=== PATIENT | female | born 2000 | race Hispanic/Latino ===

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

== ENCOUNTER 2022-03-28 20:08 | Emergency (ER) | payer OTHER, SELFPAY ==
--- OUTSIDE RECORDS SUMMARY | 2022-03-28 20:11 | XMS REPORT | Continuity of Care Document ---
:2000 Author Organization [facility] t Address [address] [place] [address] Care Team Providers Name Role Phone Radiology Attending Clinician Unavailable RADIOLOGY Attending Clinician Unavailable Doctor Unassigned, [place] Attending Clinician Unavailable Payers Payer Name Policy Type Policy Number Effective Date Expiration Date S ource Problems Condition Condition Condition Status Onset Resolution Last Treating Co mments Source Name Details Category Date Date Treatment Clinician Date Encounter Encounter Problem Active Com mon for other for other Spir it general general - [facility] counseling counseling [facility] or advice or advice Edis car on on Medical contracept contracept Ce nter ion ion Nexplanon Nexplanon Problem Active Com mon insertion insertion Spir it - [facility] Encounter Encounter Problem Active Com mon for for Spirit surveillan surveillan - [facility] ce of ce of St implantabl implantabl Yudelka kes e e Medical subdermal subdermal Cent er contracept contracept sameer sameer Follow up Follow up Problem Active Com mon [facility] Allergies, Adverse Reactions, Alerts Allergy Allergy Status Severity Reaction(s) Onset Inactive Treating Comm ents Source Name Type Date Date Clinician NO KNOWN Drug Active Univers ALLERGIE Class ity of S [facility] Social History Social Habit Start Date Stop Date Quantity Comments Source Sex Assigned At Uni versity [facility] Exposure to SARS-CoV-2 Not sure Un iversity [facility] (event) [facility] Smoking Status Start Date Stop Date Source Unknown if ever smoked Universit y [facility] Medications Ordered Filled Start Stop Current Ordering Indication Dosage Frequency Signature Comments Components Source Medication Medication Date Date Medication? Clinician (SIG) Name Name Charmaine Montano 2018-06- No Yomi 1 tablet [facility] 0-02 09 Rekhi Spirit 00:00: 00:00 - [facility]I 00 :00 [facility] Azithromyci Azithromyci 2018-06- No Yomi 1 tablet Common n n 0-02 03-16 Releoncioi Spirit 00:00: 00:00 - CHI 00 :00 [facility] Procedures Procedure Date / Time Performed Performing Clinician [facility] e ASSIGNMENT OF BENEFITS 2020-06-10 20:52:42 Doctor Unassigned, No [facility] Encounters Start End Encounter Admission Attending Care Care Encounter Source Date/Time Date/Time Type Type Clinicians Facility Department ID 2020-06-10 2020-06-10 [facility] Radiology [facility] [id number] Univers 14:53:32 23:59:00 Encounter [place] [id number] ity of [place] [id number] [place] [id number] [facility] [address] [place] 2020-06-10 2020-06-10 [facility] Radiology [facility] [id number] Univers 14:35:00 14:52:00 Encounter [place] [id number] ity of [place] [id number] [facility] [id number] [address] 2020-06-10 2020-06-10 Outpatient R RADIOLOGY [facility] [id number] Univers 00:00:00 00:00:00 ity of [facility] 2020-06-10 2020-06-10 Orders Doctor GARCIAS [id number] Univers 00:00:00 00:00:00 Only Unassigned, SABAS [id number] [facility] [id number] Leonardo [id number] [place] [address] [address] 2019-03-15 2019-03-15 [facility] [id number] Common 12:48:00 12:48:00 [facility] 2019-02-16 2019-02-16 [facility] [id number] Common 09:15:00 09:15:00 [facility] 2018-07-11 2018-07-11 [facility] [id number] Common 15:45:00 15:45:00 [facility] 2017-12-20 2017-12-20 Outpatient Angela Melendez [id number] Common 14:30:00 14:30:00 t [facility] Care Clinic - [facility] 2017-11-29 2017-11-29 Outpatient Angela Melendez [id number] Common 14:00:00 14:00:00 t [facility] Care Care [facility] - [facility] 2017-09-30 2017-09-30 Outpatient Angela Melendez [id number] Common 13:45:00 13:45:00 t Women's Women's Spir it Care Care Clinic - I [facility] Results This patient has no known results.
[2022-03-28 21:52] LABS: Urine Blood Negative (Negative); Urine Glucose Negative (Negative); Urine Protein Negative (Negative); Urine Specific Gravity >=1.030 (1.005-1.030)
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
[2022-03-28 23:44] VITALS: BP 136/81; TEMP 98.1; O2SAT 100
== END 2022-03-28 23:02 | disposition home or self-care (01) ==
LOC: ER 20:08
DX: M54.50 Low back pain, unspecified (principal); R07.1 Chest pain on breathing; R10.817 Generalized abdominal tenderness; M54.2 Cervicalgia; R51.9 Headache, unspecified; V43.62XA Car passenger injured in collision with other type car in traffic accident, initial encounter; Y93.89 Activity, other specified; Y92.410 Unspecified street and highway as the place of occurrence of the external cause
CPT/HCPCS: 70450; 71250; 72125; 81003; 99283

== ENCOUNTER 2025-03-29 04:35 | Emergency (ER) | payer SELFPAY ==
--- OUTSIDE RECORDS SUMMARY | 2025-03-29 04:39 | XMS REPORT | Continuity of Care Document ---
Author Name Unknown Address [address] [facility] [place] [address] [facility] [place] Address [address] [facility] [place] [address] Care Team Providers [facility] Manager Name Role Phone Mariaelena Nathan Attending Clinician Unavail able Radiology Attending Clinician Unavailable RADIOLOGY Attending Clinician Unavailable Doctor Unassigned, [place] Attending Clinician U navailable Payers Payer Name Policy Type Policy Number Effective Date Expirati on Date Source Problems Condition Name Condition Details Condition Category Status Onset Date Resolution Date Last Treatment Date Treating Clinician Comments Source [id number] Current moderate episode of major depressive disorder without prior episode Problem [facility] [id number] AL[place] (generaliz ed anxiety disorder) Problem [facility] [id number] Encounter for surveillan ce of implantabl e subdermal contracept sameer Problem [facility] [id number] Other tobacco product nicotine dependence , uncomplica mer Problem [facility] Allergies, Adverse Reactions, Alerts Allergy Name Allergy Type Status Severity Reaction(s) Onset Date Inactive Date Treating Clinician Comments Source NO KNOWN ALLERGIE S Drug Class Active [facility] Social History Social Habit Start Date Stop Date Quantity Comments Source History of Tobacco Use [facility] Sex Assigned At [facility] Exposure to SARS-CoV-2 (event) Not sure [facility] Smoking Status Start Date Stop Date Source Unknown if ever smoked [facility] Never Smoker [facility] Medications Ordered Medication Name Filled Medication Name Start Date Stop Date Current Medication? Ordering Clinician Indication Dosage Frequency Signature (SIG) Comments Components Source diphenhydrA MINE HCl 12.5 MG/5ML diphenhydrA MINE HCl 12.5 MG/5ML 2022-06 00:00: 00 No diphenhydr AMINE HCl 12.5 MG/5ML diphenhydrA MINE HCl 12.5 MG/5ML diphenhydrA MINE HCl 12.5 MG/5ML 2022-06 00:00: 00 No diphenhydr AMINE HCl 12.5 MG/5ML Flagyl Flagyl 2018-06 00:00: 00 03-22 00:00 :00 No Yomi Schumacher 1 tablet [facility] Azithromyci n Azithromyci n 2018-06 00:00: 00 03-16 00:00 :00 No Yomi Schumacher 1 tablet [facility] Macrobid 100 MG Macrobid 100 MG 07-11 00:00: 00 No 1{capsu le_with _food} BID Macrobid 100 MG Macrobid 100 MG Macrobid 100 MG 07-11 00:00: 00 No 1{capsu le_with _food} BID Macrobid 100 MG Nexplanon 68 MG Nexplanon 68 MG No Nexplanon 68 MG Calamine 8-8 % Calamine 8-8 % No Calamine 8-8 % Melatonin Melatonin No Melatonin methylPREDN ISolone 4 MG methylPREDN ISolone 4 MG No QD methylPRED NISolone 4 MG Nexplanon 68 MG Nexplanon 68 MG No Nexplanon 68 MG Calamine 8-8 % Calamine 8-8 % No Calamine 8-8 % Melatonin Melatonin No Melatonin methylPREDN ISolone 4 MG methylPREDN ISolone 4 MG No QD methylPRED NISolone 4 MG Vital Signs Vital Name Observation Time Observation Value Comments S tracyce height 2023-05-19 13:40:00 60 [in_i] Commo n [facility] weight 2023-05-19 13:40:00 105.8 [lb_av] Co mmon [facility] temperature 2023-05-19 13:40:00 98.8 [degF] Com mon [facility] bmi 2023-05-19 13:40:00 20.66 kg/m2 Comm on [facility] oximetry 2023-05-19 13:40:00 97 % Commo n [facility] respiratory rate 2023-05-19 13:40:00 18 /min [facility] blood pressure systolic 2023-05-19 13:40:00 111 mm[Hg] Common [facility] blood pressure diastolic 2023-05-19 13:40:00 65 mm[Hg] [facility] Procedures Procedure Date / Time Performed Performing Clinicia n Source ASSIGNMENT OF BENEFITS 2020-06-10 20:52:42 Docto r Unassigned, [place] [facility] Encounters Start Date/Time End Date/Time Encounter Type Admission Type Attending Clinicians Care Facility Care Department Encounter ID Source 2023-05-19 09:32:00 Outpatient Mariaelena Nathan STLMLC STLMLC [id number] [facility] 2023-05-19 00:00:00 2023-05-19 00:00:00 OFFICE VISIT NEW PT LEVEL 3 STLMLC STL[facility]C [id number] [facility] 2023-05-19 00:00:00 2023-05-19 00:00:00 (TEL) STLC STLMLC [id number] [facility] 2020-06-10 14:53:32 2020-06-10 23:59:00 Hospital Encounter Radiology [facility] [id number] [facility] 2020-06-10 14:35:00 2020-06-10 14:52:00 Hospital Encounter Radiology [facility] [id number] [facility] 2020-06-10 00:00:00 2020-06-10 00:00:00 Outpatient R RADIOLOGY [facility] [id number] [facility] 2020-06-10 00:00:00 2020-06-10 00:00:00 Orders Only Doctor Unassigned, [place] [facility] [id number] [facility] 2019-03-15 12:48:00 2019-03-15 12:48:00 Outpatient [facility] [id number] [facility] 2019-02-16 09:15:00 2019-02-16 09:15:00 Outpatient [facility] [id number] [facility] 2018-07-11 15:45:00 2018-07-11 15:45:00 Outpatient [facility] [id number] [facility] 2017-12-20 14:30:00 2017-12-20 14:30:00 Outpatient [facility] [id number] [facility] 2017-11-29 14:00:00 2017-11-29 14:00:00 Outpatient [facility] [id number] [facility] 2017-09-30 13:45:00 2017-09-30 13:45:00 Outpatient [facility] [id number] [facility]
[2025-03-29] MEDS ORDERED: LORAZEPAM 1 MG TABLET ONE (05:02)
[2025-03-29 05:06] LABS: Absolute Lymphocytes (CBC) 2.3 K/uL (0.7-4.9); Hematocrit 41.1 % (36.0-45.0); Hemoglobin 14.1 g/dL (12.0-15.0); MCH 30.7 pg (27.0-35.0); MCHC 34.3 g/dL (32.0-36.0); MCV 89.7 fL (80-100); MPV 6.6 fL (7.6-11.3); Nucleated RBC Absolute Count 0.0 (0-0); Nucleated Red Blood Cells % 0.0 % (0-0); RBC Red Blood Cell Count 4.59 M/uL (3.86-4.86); White Blood Count 11.20 thou/uL (4.3-10.9)
[2025-03-29 05:15] LABS: PT Prothrombin Time 10.4 SECONDS (10-13.0); PTT, Activated Partial Thromb 29.5 SECONDS (27.2-37.4); Protime INR 0.92
[2025-03-29 05:25] LABS: ALT/SGPT 24 U/L (13-56); Albumin 3.7 g/dL (3.4-5.0); Albumin/Globulin Ratio 0.9 (1.1-1.8); Alkaline Phosphatase 66 U/L (45-117); Anion Gap 9.5 mEq/L (5.0-15.0); BUN Blood Urea Nitrogen 7 mg/dL (7-18); Globulin 4.2 g/dL (2.3-3.5); Glucose Level 98 mg/dL (74-106)
[2025-03-29 05:32] LABS: AST/SGOT 13 U/L (15-37); Bilirubin Indirect, Calculated 0.0 mg/dL (0.2-0.8); Potassium 3.5 mEq/L (3.5-5.1)
[2025-03-29 05:38] LABS: METHAMPHETAM NEGATIVE (NEGATIVE); THC Cannibis POSITIVE (NEGATIVE)
--- NOTE | 2025-03-29 05:45 | EDPHYS ---
Physician Documentation [facility] Name: Josesito Alberts Age: 24 yrs Sex: Female : 2000 Arrival Date: 03/29/2025 Time: 04:35 Bed 18 Private MD: ED Physician Brody Boyle HPI: 03/29 04:56 This 24 yrs old Female presents to ER via Ambulatory with complaints of tt7 Suicidal Ideation. 04:56 Patient reports that she came in as part of her safety plan because she has been having tt7 worsening suicidal ideations. She reports that she struggles with depression, chronic suicidal ideations, and anxiety at baseline but lately has been consuming alcohol more frequently to manage her anxiety and became alarmed due to the intrusiveness of her suicidal ideations. She states that she has never had suicidal intent before but has recently had some thoughts that concerned her. She denies definitive suicidal plan. She denies homicidal ideations, auditory or visual hallucinations. [employer] B[employer]: 05:05 LMP N/A - nexplanon, Not vc1 Historical: - Allergies: 04:40 No Known Allergies; vc1 - Home Meds: 04:40 None [Active]; vc1 - PMHx: 04:40 Depressive disorder; Anxiety; vc1 - PSHx: 04:40 None; vc1 - Immunization history:: Client reports having NOT received the Covid vaccine. Flu vaccine is not up to date. - Infectious Disease History:: Denies. - Social history:: Smoking status: Reported history of juuling and/or vaping. ROS: 04:55 Constitutional: negative for fever. Cardiovascular: negative for chest pain. tt7 Respiratory: negative for shortness of breath. Abdomen/GI: negative for abdominal pain, nausea, vomiting, diarrhea. MS/Extremity: negative for injury and deformity. Skin: negative for rash. Neuro: negative for focal weakness. 04:55 Psych: Positive for anxiety, depression, suicidal ideation, Negative for auditory hallucinations, visual hallucinations, homicidal ideation, Exam: 04:58 Constitutional: Constitutional: vital signs reviewed, well appearing Head: tt7 normocephalic Eyes: no conjunctival injection, anicteric sclerae ENMT: mucus membranes moist Neck: trachea midline, no JVD Respiratory: normal respiratory effort, no accessory muscle use, no audible wheezing Cardiovascular: Regular rate and rhythm, no lower extremity edema Abdomen: nondistended MSK: normal ROM of extremities, no gross deformities Skin: warm, dry, intact Neuro: alert and oriented with appropriate mental status, normal speech, follows commands, no focal neurologic deficits Psych: Depressed mood, flat affect Vital Signs: 04:40 BP 124 / 88; Pulse 104; Resp 18; Pulse Ox 96% ; Weight 46.72 kg; Height 5 ft. 1 in. ; vc1 05:13 Temp 98; km10 09:18 BP 115 / 84; Pulse 99; Resp 16; Temp 98.2; Pulse Ox 98% ; ts3 21:25 BP 130 / 83; Pulse 72; Resp 12 S; Temp 98.3(O); Pulse Ox 98% on R/A; sa1 04:40 Body Mass Index 19.46 (46.72 kg, 154.94 cm) vc1 MDM: 04:41 Medical Screening Exam initiated tt7 04:53 Differential diagnosis: drug withdrawal. depression, Suicidal ideation. Data reviewed: tt7 vital signs, nurses notes, lab test result(s). ED course: Standard toxicology/psych evaluation initiated, 1 mg of oral Ativan ordered to treat patient's anxiety and prevent any potential alcohol withdrawal symptoms. 05:41 ED course: I independently interpreted the patient's EKG performed on 03/29/2025 at tt7 0501. On my interpretation, EKG demonstrates normal sinus rhythm, ventricular rate 94 bpm, normal axis, normal QRS interval, normal ST segments, no STEMI. ED course: Laboratory studies are overall reassuring, elevated ethanol level of 133, patient clinically sober, also urine drug screen is positive for cocaine, benzos, cannabinoids, patient medically stable for psychiatric placement. 06:50 ED course: Patient care signed out to Dr. Horne at shift change at 0700 pending tt7 psychiatric placement. 20:52 ED course: I took over care of this patient at shift change at 1900 on 03/29, I tt7 reassessed the patient, she is resting comfortably and in no acute distress, the patient was accepted by Dr. Morataya at [facility] and will be transported there in stable condition once EMS transport is available. 03/29 04:50 Order name: Acetaminophen; Complete Time: 05:39 tt7 03/29 04:50 Order name: Basic Metabolic Panel; Complete Time: 05:39 03/29 04:50 Order name: CBC with Diff; Complete Time: 05:20 03/29 04:50 Order name: ETOH Level; Complete Time: 05:39 03/29 04:50 Order name: Hepatic Function; Complete Time: 05:39 03/29 04:50 Order name: PT-INR; Complete Time: 05:20 03/29 04:50 Order name: Ptt, Activated; Complete Time: 05:20 03/29 04:50 Order name: Salicylate; Complete Time: 05:39 03/29 04:50 Order name: Urine Drug Screen; Complete Time: 05:39 03/29 04:50 Order name: Test, Serum; Complete Time: 05:39 03/29 04:50 Order name: EKG - Nurse/Tech; Complete Time: 05:10 03/29 04:50 Order name: IV Saline Lock; Complete Time: 05:01 03/29 04:50 Order name: Labs collected and sent; Complete Time: 05:01 03/29 04:50 Order name: Suicide Precautions; Complete Time: 05:01 03/29 04:50 Order name: Suicide Screening ([place]); Complete Time: 05:01 tt7 Administered Medications: 05:18 Drug: LORazepam PO 1 mg PO once Route: PO; km10 05:56 Follow up: Response: No adverse reaction km10 Disposition: 20:52 Co-signature as Attending Physician, Brody Boyle DO. tt7 Disposition Summary: 03/29/25 05:44 Transfer Ordered Notes: Transfer Location: Psych Facility tt7 Reason: Specialty tt7 Condition: Stable tt7 Problem: an acute exacerbation tt7 Symptoms: are unchanged tt7 Accepting Physician: Dr. Morataya(03/29/25 21:29) rg5 Diagnosis - Suicidal ideations tt7 Forms: - Medication Reconciliation Form tt7 - SBAR form tt7 Signatures: Dispatcher [employer] Jaylyn Walker RN RN vc1 Lonnie Cherry RN RN rg5 Marcela Schulte RN RN km10 Brody Boyle DO DO tt7 Corrections: (The following items were deleted from the chart) 04:51 04:51 ACETAMINOPHEN+C.LAB.BRZ ordered. EDMS EDMS 04:51 04:51 BASIC METABOLIC PANEL+C.LAB.BRZ ordered. EDMS EDMS 04:51 04:51 CBC+H.LAB.BRZ ordered. EDMS EDMS 04:51 04:51 ETHANOL+C.LAB.BRZ ordered. EDMS EDMS 04:51 04:51 HEPATIC FUNCTION+C.LAB.BRZ ordered. EDMS EDMS 04:51 04:51 PROTIME (+INR)+COAG.LAB.BRZ ordered. EDMS EDMS 04:51 04:51 PTT, ACTIVATED+COAG.LAB.BRZ ordered. EDMS EDMS 04:51 04:51 SALICYLATE+C.LAB.BRZ ordered. EDMS EDMS 04:51 04:51 URINE DRUG SCREEN+UC.LAB.BRZ ordered. EDMS EDMS 04:51 04:51 TEST, SERUM+SC.LAB.BRZ ordered. EDMS EDMS 05:33 05:20 Test, Urine+UC.LAB.BRZ ordered. EDMS EDMS 20:53 05:44 Psych tt7 tt7 21:29 20:53 Dr. Morataya tt7 rg5
--- NOTE | 2025-03-29 05:45 | ER ---
Nurse's Notes [facility] Name: Josesito Alberts Age: 24 yrs Sex: Female : 2000 Arrival Date: 03/29/2025 Time: 04:35 Bed 18 Private MD: Diagnosis: Suicidal ideations Presentation: 03/29 04:40 Chief complaint: Patient states: "I came in tonight because I was afraid I was going to vc1 hurt myself, I cut myself 2 nights ago and I am afraid I am going to hurt myself again". Coronavirus screen: Client denies travel out of the [place] in the last 14 days. At this time, the client does not indicate any symptoms associated with coronavirus-19. Ebola Screen: Patient negative for fever greater than or equal to 101.5 degrees Fahrenheit, and additional compatible Ebola Virus Disease symptoms Patient denies exposure to infectious person. Patient denies travel to an Ebola-affected area in the 21 days before illness onset. No symptoms or risks identified at this time. 04:40 Method Of Arrival: Ambulatory vc1 04:40 Initial Sepsis Screen: Does the patient meet any 2 criteria? No. Patient's initial vc1 sepsis screen is negative. Does the patient have a suspected source of infection? No. Patient's initial sepsis screen is negative. Risk Assessment: Do you want to hurt yourself or someone else? Patient reports desire/thoughts of hurting themselves or someone else. Provider notified. Onset of symptoms was March 27, 2025. Care prior to arrival: None. Activity prior to arrival: None. Mechanism of Injury: Laceration sustained at home, Injury was self inflicted. Transition of care: patient was not received from another setting of care. 04:40 Acuity: MILLICENT 2 vc1 Triage Assessment: 04:40 General: Appears in no apparent distress. uncomfortable, slender, well groomed, well vc1 developed, well nourished, Behavior is cooperative, anxious. Pain: Complains of pain in right leg and left leg. EENT: No deficits noted. No signs and/or symptoms were reported regarding the EENT system. Neuro: Level of Consciousness is awake, alert, obeys commands, Oriented to person, place, time, situation, Appropriate for age. Cardiovascular: Capillary refill < 3 seconds Patient's skin is warm and dry. Respiratory: Airway is patent Respiratory effort is even, unlabored, Respiratory pattern is regular, symmetrical. GI: No deficits noted. No signs and/or symptoms were reported involving the gastrointestinal system. : No deficits noted. No signs and/or symptoms were reported regarding the genitourinary system. Derm: Wound noted right leg and left leg. Musculoskeletal: Range of motion: intact in all extremities. Injury Description: Laceration sustained to right leg and left leg. 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 Flu vaccine is not up to date. - Infectious Disease History:: Denies. - Social history:: Smoking status: Reported history of juuling and/or vaping. Screenin:08 [facility] ED Fall Risk Assessment (Adult) History of falling in the last 3 months, km10 including since admission No falls in past 3 months (0 pts) Confusion or Disorientation No (0 pts) Intoxicated or Sedated No (0 pts) Impaired Gait No (0 pts) Mobility Assist Device Used No (0 pt) Altered Elimination No (0 pt) Score/Fall Risk Level 0 - 2 = Low Risk Oriented to surroundings, Maintained a safe environment, Assessed \\T\\ reinforced patient's understanding of fall precautions, Hourly rounding (assess needs \\T\\ fall precautionary measures) done. Abuse screen: Denies threats or abuse. Denies injuries from another. Nutritional screening: No deficits noted. Tuberculosis screening: No symptoms or risk factors identified. Assessment: 05:00 General: Appears in no apparent distress. General: Behavior is cooperative, anxious, kd3 quiet. Neuro: Level of Consciousness is awake, alert, obeys commands, Oriented to person, place, time, situation. Cardiovascular: Capillary refill < 3 seconds Patient's skin is warm and dry. Respiratory: Airway is patent Trachea midline Respiratory effort is even, unlabored, Respiratory pattern is regular, symmetrical. 07:20 Reassessment: pt sleeping, chest rising and falling, respirations even. General: kb4 Appears in no apparent distress. comfortable, Behavior is cooperative, quiet. 07:41 Respiratory: Airway is patent Respiratory effort is even, unlabored. ap3 15:00 Reassessment: No changes from previously documented assessment. Patient and/or family rg5 updated on plan of care and expected duration. Pain level reassessed. Patient is alert, oriented x 3, equal unlabored respirations, skin warm/dry/pink. General: Appears in no apparent distress. comfortable, Behavior is calm, cooperative, appropriate for age, quiet, sleeping. 16:00 Reassessment: Patient and/or family updated on plan of care and expected duration. Pain rg5 level reassessed. Patient is alert, oriented x 3, equal unlabored respirations, skin warm/dry/pink. 17:00 Reassessment: Patient and/or family updated on plan of care and expected duration. Pain rg5 level reassessed. Patient is alert, oriented x 3, equal unlabored respirations, skin warm/dry/pink. 18:00 Reassessment: Patient and/or family updated on plan of care and expected duration. Pain rg5 level reassessed. Patient is alert, oriented x 3, equal unlabored respirations, skin warm/dry/pink. 19:02 Reassessment: No changes from previously documented assessment. Patient and/or family rg5 updated on plan of care and expected duration. Pain level reassessed. Patient is alert, oriented x 3, equal unlabored respirations, skin warm/dry/pink. 20:00 Reassessment: No changes from previously documented assessment. Patient and/or family rg5 updated on plan of care and expected duration. Pain level reassessed. Patient is alert, oriented x 3, equal unlabored respirations, skin warm/dry/pink. General: Appears in no apparent distress. Behavior is calm, quiet. 21:05 Reassessment: Patient and/or family updated on plan of care and expected duration. Pain rg5 level reassessed. Patient is alert, oriented x 3, equal unlabored respirations, skin warm/dry/pink. General: Appears in no apparent distress. comfortable, Behavior is calm, cooperative, quiet, SLEEPING. Psych: 05:16 [place] Suicide Severity Screening: In the past month, have you wished you were km10 or wished you could go to sleep and not wake up? Patient responds "yes." "In the past month, have you actually had any thoughts of killing yourself?" Patient responds "no." "In your lifetime, have you ever done anything, started to do anything, or prepared to do anything to end your life?" Patient responds "no.". Subjective: Patient's mood is sad, Delusions are denied, Hallucinations are denied Having thoughts of suicide. Denies suicidal plan. Objective: Patient is cooperative, Speech is normal, Affect is appropriate. Interventions: Removed personal items and placed in bag. Patient placed in hospital gown. Searched person for dangerous items. Urine collected and sent for urine drug test. Belonging list filled out. Safety Checks: Personal items have been removed. Door is open. No visitors are present at this time. Pt denies substance abuse. Commitment: Patient will be a voluntary commitment. 07:00 [place] Suicide Severity Screening: In the past month, have you wished you were kb4 or wished you could go to sleep and not wake up? Patient responds "No." "In the past month, have you actually had any thoughts of killing yourself?" Patient responds "no." "In your lifetime, have you ever done anything, started to do anything, or prepared to do anything to end your life?" Patient responds "no.". Subjective: Patient's mood is sad, Delusions are denied, Hallucinations are denied Having thoughts of no longer reports feeling suicidal. Objective: Patient is cooperative, Speech is normal, Affect is appropriate. Objective:. Interventions:. Safety Checks: Personal items have been removed. Door is open. No visitors are present at this time. Pt denies substance abuse. Commitment: Patient will be a voluntary commitment. Vital Signs: 04:40 BP 124 / 88; Pulse 104; Resp 18; Pulse Ox 96% ; Weight 46.72 kg; Height 5 ft. 1 in. ; vc1 05:13 Temp 98; km10 09:18 BP 115 / 84; Pulse 99; Resp 16; Temp 98.2; Pulse Ox 98% ; ts3 21:25 BP 130 / 83; Pulse 72; Resp 12 S; Temp 98.3(O); Pulse Ox 98% on R/A; sa1 04:40 Body Mass Index 19.46 (46.72 kg, 154.94 cm) vc1 ED Course: 04:39 Patient arrived in ED. gm2 04:41 Brody Boyle DO is Attending Physician. tt7 04:50 Marcela Schulte, RN is Primary Nurse. km10 05:01 Triage completed. vc1 05:04 Arm band placed on right wrist. vc1 05:05 PT-INR Sent. km10 05:05 Ptt, Activated Sent. km10 05:05 Salicylate Sent. km10 05:05 Hepatic Function Sent. km10 05:05 ETOH Level Sent. km10 05:05 CBC with Diff Sent. km10 05:05 Basic Metabolic Panel Sent. km10 05:05 Acetaminophen Sent. km10 05:10 Salicylate Sent. km10 05:10 Ptt, Activated Sent. km10 05:11 Patient has correct armband on for positive identification. Bed in low position. Noise km10 minimized. Warm blanket given. 05:11 PT-INR Sent. km10 05:11 Hepatic Function Sent. km10 05:11 ETOH Level Sent. km10 05:11 Basic Metabolic Panel Sent. km10 05:11 Acetaminophen Sent. km10 10:[address] [facility] to have a screener come evaluate pt. bd 10:44 faxed chart to [facility]. bd 13:20 Attending Physician role handed off by Brody Boyle DO chun 13:20 Dejon Horne MD is Attending Physician. chun 17:00 Diet: Patient given a regular meal tray. Tolerated well. rg5 17:01 CALLED [facility] FOR FOLLOW UP TALKED TO [facility] AND SHE STATED NOT MOVING sp FORWARD WITH TRANSFER. 17:18 FAXED [facility]. Social work. sp 18:50 Attending Physician role handed off by Dejon Horne MD tt7 18:50 Brody Boyle DO is Attending Physician. tt7 21:27 No provider procedures requiring assistance completed. IV discontinued, bleeding rg5 controlled, No redness/swelling at site. Pressure dressing applied. Administered Medications: 05:18 Drug: LORazepam PO 1 mg PO once Route: PO; km10 05:56 Follow up: Response: No adverse reaction 10 Medication: 15:00 VIS not applicable for this client. rg5 Outcome: 05:44 ER care complete, transfer ordered by . tt7 21:27 Transferred by ground EMS Note: JIM SCANLON rg5 21:27 Condition: stable 21:27 Instructed on the need for transfer, 21:29 Patient left the ED. rg5 Signatures: Pratibha Cervantes Corey, MD MD cha Pinkerton, Shawna sp Prokisch, Amanda RN RN ap3 Lynda Dawkins RN RN kd3 Jaylyn More RN RN vc1 Flor Chahal gm2 Lonnie Cherry, RN RN rg5 Sultan Junaid sa1 Elke Brown RN RN kb4 Marcela Schulte RN RN km10 Myrtle Waite ts3 Brody Boyle DO DO tt7 Corrections: (The following items were deleted from the chart) 11:42 07:00 Interventions: Patient reassessed during use of restraints. Patient is physically kb4 safe. Patient's cardiac status is stable. Patient's respirations are even and unlabored. Patient has good circulation in all extremities as indicated by capillary refill < 3 seconds. Patient's ROM assessed and is intact. Patient nutrition and hydration needs will continue to be monitored and addressed. Patient hygiene and elimination needs met. Patient assessed for signs of distress. Patient remains reasonably comfortable at this time. Assisted patient in de-escalation of behavior by removing stimuli causing behavior where possible. kb4
[2025-03-29 23:29] VITALS: O2SAT 98
[2025-03-29 23:30] VITALS: BP 130/83; TEMP 98.3
== END 2025-03-29 21:29 ==
LOC: ER 04:35
DX: R45.851 Suicidal ideations (principal)
CPT/HCPCS: 36415; 80048; 80076; 80143; 80179; 80307; 82077; 84703; 85025; 85610; 85730; 93005; 99285